=== PATIENT | male | born 1940 | race Caucasian/White ===

== ENCOUNTER → 2019-02-05 | Outpatient (CLI) | payer MEDICARE, BC | LOC: COL.RAD 07:57 | DX: M51.16 Intervertebral disc disorders with radiculopathy, lumbar region (principal); M48.07 Spinal stenosis, lumbosacral region; M75.121 Complete rotator cuff tear or rupture of right shoulder, not specified as traumatic; M75.81 Other shoulder lesions, right shoulder; M19.011 Primary osteoarthritis, right shoulder ==

== ENCOUNTER → 2019-02-19 | Outpatient (CLI) | payer MEDICARE, BC ==
[~2019-02-19] VITALS: Ht 182.9 cm; Wt 90.9 kg
[~2019-02-19] MED LIST: ASPIRIN E.C. 8181 MG PO; CRESTOR40 MG PO; MAXALT MLT10 MG/TAB PO; TESTO INJ; THE MEDICINE S200 M2 PO; ULTRAM 50MG TAB50 MG PO; VOLTAREN 75 DR75 MG PO
[2019-02-19 14:06] VITALS: BP 148/97; PULSE 87
[2019-02-19 15:20] VITALS: BP 163/96; PULSE 88
== END ==
LOC: COL.RAD 13:30
DX: M54.17 Radiculopathy, lumbosacral region (principal)
CPT/HCPCS: J3301

== ENCOUNTER → 2019-03-05 | Outpatient (CLI) | payer MEDICARE, BC ==
[~2019-03-05] VITALS: Ht 182.9 cm; Wt 90.3 kg
[2019-03-05 13:38] VITALS: BP 166/87; PULSE 86
[2019-03-05 14:34] VITALS: BP 177/90; PULSE 82
--- NOTE | 2019-03-05 14:37 | NUR ---
NO JUST DISCOMFORT. ABLE TO STAND AND AMBULATE IN THE AREA.
--- NOTE | 2019-03-05 14:54 | NUR ---
PT TAKEN TO POV IN WHEELCHAIR
== END ==
LOC: COL.RAD 13:15
DX: M54.16 Radiculopathy, lumbar region (principal)
CPT/HCPCS: J3301

== ENCOUNTER → 2019-03-19 | Outpatient (CLI) | payer MEDICARE, BC ==
[~2019-03-19] VITALS: Ht 182.9 cm; Wt 89.3 kg
[2019-03-19 06:57] VITALS: BP 167/93; PULSE 81
[2019-03-19 07:41] VITALS: BP 173/89; PULSE 83
--- NOTE | 2019-03-19 08:14 | NUR ---
pt was taken to lobby in wheelchair with family present. pt was able to move from chair to pov with ease
== END ==
LOC: COL.RAD 06:30
DX: M54.16 Radiculopathy, lumbar region (principal)
CPT/HCPCS: J3301